=== PATIENT | female | born 1990 | race Caucasian/White ===

== ENCOUNTER 2017-01-17 10:01 | Emergency (ER) ==
[2017-01-17 10:07] VITALS: BP 126/75; TEMP 98.7; BMI 34.9
[2017-01-17] MEDS ORDERED: EYE-STREAM OP STA (10:08)
[2017-01-17] MEDS ORDERED: PROPARACAINE 0.5% OP STA (10:08)
[2017-01-17] MEDS ORDERED: FLUORETS OP STA (10:08)
--- NOTE | 2017-01-17 10:20 | ED.PDOC ---
General ED Provider: Dr. ABDIEL WALSH JR Chief Complaint: Eye Problem Stated Complaint: playing around with boyfriend and thinks his nail scratched right eye[End]last night 98.7 86 18 99% 126/75 1010implant in arm Time Seen by Physician: 10:14 Mode of Arrival: Walk-In Information Source: Patient Exam Limitations: No limitations Nursing and Triage Documentation Reviewed and Agree: No EENT Complaint Exam - Eye Complaint/Exam Onset/Duration: 01/16 Symptoms Are: Still present Timing: Constant Initial Severity: Moderate Current Severity: Moderate Location: Right Character: Reports: Foreign body sensation Aggravating: Reports: None Alleviating: Reports: None Associated Signs and Symptoms: Reports: Clear drainage, Vision impairment ( blurring) Related History: Reports: Similar episode, Trauma Eye Surgical History: Reports: None Penetrating Injury Risk Factors: None Globe Rupture Risk Factors: Recent trauma Acute Glaucoma Risk Factors: Eye trauma Optic Artery Occlusion Risk Factors: None Visual Field: Normal Extraocular Movement: Normal Orbit Findings: Normal Globe Findings: Intact Lid Findings: Normal, Erythema Conjunctival Findings: Red Corneal Findings: Clear Fluorescein Uptake: Yes Fundi: Normal Eye Picture: 1 - superficial triangular abrasion Differential Diagnoses: Corneal Abrasion Review of Systems - Review Of Systems Constitutional: Reports: No symptoms Eyes: Reports: Blurred vision, Drainage, Inflammation, Pain, Photophobia Ears, Nose, Mouth, Throat: Reports: No symptoms Respiratory: Reports: No symptoms Cardiac: Reports: No symptoms GI: Reports: No symptoms : Reports: No symptoms Musculoskeletal: Reports: No symptoms Skin: Reports: No symptoms Endocrine: Reports: No symptoms Hematologic/Lymphatic: Reports: No symptoms All Other Systems: Other Past Medical History - Past Medical History Previously Healthy: Yes Endocrine: Reports: None Cardiovascular: Reports: None Respiratory: Reports: None Hematological: Reports: None Gastrointestinal: Reports: None Genitourinary: Reports: None Neuro/Psych: Reports: None Musculoskeletal: Reports: None Cancer: Reports: None Last Menstrual Period: implant in arm - Surgical History General Surgical History: Reports: None - Family History Family History: Reports: None - Social History Smoking Status: Never smoker Hx Substance Use: No Alcohol Screening: Occasionally - Immunizations Tetanus Shot up to Date: No Physical Exam - Physical Exam Appearance: Well-appearing, Obese Pain Distress: Moderate Eyes: Conjunctiva inflammed (right corneal abrasion) Neck: Supple Neurological: Alert, Oriented (very reticent historian unable to get clear answers but generally negative history) Critical Care Note - Critical Care Note Total Time (mins): 0 Course - Course Orders, Labs, Meds: Orders Category Date Time Status Balanced Salt Solution [Eye-Stream] MEDS 01/17/17 10:08 Discontinued 1 bottle OP ONCE STA Fluorescein Sodium [Fluorets] MEDS 01/17/17 10:08 Discontinued 1 strip OP ONCE STA Proparacaine HCl [Proparacaine 0.5%] MEDS 01/17/17 10:08 Discontinued 2 drop OP ONCE STA Medications Discontinued Medications Generic Name Dose Route Start Last Admin Trade Name Freq PRN Reason Stop Dose Admin Eye Irrigation Solution 1 bottle 01/17/17 10:08 Eye-Stream OP 01/17/17 10:09 ONCE STA Fluorescein Sodium 1 strip 01/17/17 10:08 Fluorets OP 01/17/17 10:09 ONCE STA Proparacaine HCl 2 drop 01/17/17 10:08 Proparacaine 0.5% OP 01/17/17 10:09 ONCE STA Vital Signs: Temp Pulse Resp BP Pulse Ox 01/17/17 10:02 98.7 F 86 18 126/75 99 Departure - Departure Time of Disposition: 10:48 Disposition: HOME SELF-CARE Discharge Problem: Corneal abrasion, right Qualifiers: Encounter type: initial encounter Qualifier Code: (S05.01XA) Injury of conjunctiva and corneal abrasion without foreign body, right eye, initial encounter Instructions: Corneal Abrasion (ED) Condition: Good Pt referred to PMD for follow-up: Yes (recommend see production utility worker in 1-2 days) Additional Instructions: gentamycin three to four time s a day for three days recommend recheck production utility worker 1-2 days return if fever over 101.0 may use eye wash every two hours as needed for discomfort Prescriptions: Gentamicin Sulfate [Gentak Opth Oint] 1 applic OP QID #1 tub Gentamicin Sulfate [Gentak Opth Oint] 1 applic OP QID #1 tub Allergies/Adverse Reactions: Allergies No Known Allergies Allergy (Verified 01/17/17 10:08) Home Medications: Ambulatory Orders Gentamicin Sulfate [Gentak Opth Oint] 1 applic OP QID #1 tub 01/17/17 Gentamicin Sulfate [Gentak Opth Oint] 1 applic OP QID #1 tub 01/17/17
[2017-01-17] MEDS ORDERED: GENTAK OPTH OINT OP STA (10:52)
== END 2017-01-17 11:03 | disposition home or self-care (01) ==
LOC: ED 10:01
DX: S05.01XA Injury of conjunctiva and corneal abrasion without foreign body, right eye, initial encounter (principal); W51.XXXA Accidental striking against or bumped into by another person, initial encounter
CPT/HCPCS: 99282

== ENCOUNTER 2017-02-15 12:44 | Inpatient (IN) ==
[2017-02-15 12:48] VITALS: BMI 33.3
--- NOTE | 2017-02-15 13:03 | ED.PDOC ---
General ED Provider: Dr. TED RAMIREZ Chief Complaint: Sore Throat Stated Complaint: SORE THROAT Time Seen by Physician: 12:44 (SEEN WITH LEANNE AT ARRIVAL AND EXAM) Mode of Arrival: Walk-In Information Source: Patient Exam Limitations: No limitations Nursing and Triage Documentation Reviewed and Agree: Yes Review of Systems - Review Of Systems Constitutional: Reports: No symptoms Eyes: Reports: No symptoms Ears, Nose, Mouth, Throat: Reports: Throat pain Respiratory: Reports: No symptoms Cardiac: Reports: No symptoms GI: Reports: No symptoms : Reports: No symptoms Musculoskeletal: Reports: No symptoms Skin: Reports: No symptoms Neurological: Reports: No symptoms Endocrine: Reports: No symptoms Hematologic/Lymphatic: Reports: No symptoms All Other Systems: Reviewed and Negative Past Medical History - Past Medical History Previously Healthy: Yes Endocrine: Reports: None Cardiovascular: Reports: None Respiratory: Reports: None Hematological: Reports: None Gastrointestinal: Reports: None Genitourinary: Reports: None Neuro/Psych: Reports: None Musculoskeletal: Reports: None Cancer: Reports: None Last Menstrual Period: last month - Surgical History General Surgical History: Reports: None - Family History Family History: Reports: None - Social History Smoking Status: Never smoker Hx Substance Use: No Alcohol Screening: Occasionally Physical Exam - Physical Exam Appearance: Ill-appearing Ill-appearing: Mild Pain Distress: Mild Eyes: ALEE, EOMI, Conjunctiva clear ENT: Erythema, Exudate Respiratory: Airway patent, Breath sounds clear, Breath sounds equal, Respirations nonlabored Cardiovascular: RRR, Pulses normal, No rub, No murmur GI/: Soft, Nontender, No masses, Bowel sounds normal, No Organomegaly Musculoskeletal: Normal strength, ROM intact, No edema, No calf tenderness Skin: Warm, Dry, Normal color Neurological: Sensation intact, Motor intact, Reflexes intact, Cranial nerves intact, Alert, Oriented Psychiatric: Affect appropriate, Mood appropriate Interpretation - Radiology Interpretation Radiology Interpretation By: Radiologist Radiology Results: No acute changes Physician Notification - Case Discussed Physician Notified: JOHN Time of Notification: 15:01 Admit To: Inpatient Critical Care Note - Critical Care Note Total Time (mins): 0 Course - Course Hematology/Chemistry: 02/15/17 13:10 02/15/17 13:10 Orders, Labs, Meds: Orders Category Date Time Status NPO REMINDER: IMAGING ONCE CARE 02/15/17 12:53 Active BLOOD CULTURE Stat LAB 02/15/17 12:53 Ordered CBC W/ AUTO DIFF Stat LAB 02/15/17 12:52 Ordered COMPREHENSIVE METABOLIC PANEL Stat LAB 02/15/17 12:52 Ordered LACTIC ACID Stat LAB 02/15/17 12:53 Ordered PROCALCITONIN Stat LAB 02/15/17 12:53 Ordered STREP SCREEN Stat LAB 02/15/17 13:01 Ordered CHEST, 2 VIEWS PA & LAT Stat RADS 02/15/17 12:[address] SOFT TISSUE NECK W/CONTRAST Stat RADS 02/15/17 12:52 Ordered Vital Signs: Temp Pulse Resp BP Pulse Ox 02/15/17 12:44 102.5 F H 118 H 20 104/70 99 Departure - Departure Time of Disposition: 15:01 Disposition: HOME SELF-CARE Discharge Problem: Sore throat symptom, Acute bacterial tonsillitis Instructions: Hypokalemia (ED) Condition: Good Pt referred to PMD for follow-up: Yes Additional Instructions: Please call your Family Physician as soon as possible to schedule a follow-up appointment. Allergies/Adverse Reactions: Allergies No Known Allergies Allergy (Verified 02/15/17 12:48) Home Medications: Ambulatory Orders 1 [No Reported Medications] 02/15/17 Disposition Discussed With: Patient, Family
[2017-02-15 13:16] LABS: BASOPHILS % (AUTO) 0.3 % (0.0-3.0); HEMATOCRIT 37.4 % (37.0-47.0); HEMOGLOBIN 12.8 g/dl (12.0-16.0); IMMATURE GRANULOCYTE % (AUTO) 0.3 % (0.0-5.0); LYMPHOCYTES # (AUTO) 1.2 K/uL (0.60-3.4); LYMPHOCYTES % (AUTO) 11.6 (10.0-50.0); MEAN CORPUSCULAR HEMOGLOBIN 27.9 pg (27.0-31.0); MEAN CORPUSCULAR HGB CONC 34.2 (31.8-35.4); MEAN CORPUSCULAR VOLUME 81.5 fl (81.0-99.0); NEUTROPHILS # (AUTO) 7.8 K/ul (2.0-6.9); NEUTROPHILS % (AUTO) 77.8; PLATELET COUNT 273 10^3/uL (140-440); RED BLOOD COUNT 4.59 10^6/ul (4.20-5.40); WHITE BLOOD COUNT 10.03 K/ul (4.6-10.2)
[2017-02-15] MEDS ORDERED: TYLENOL #3 TAB PO STA (13:27)
[2017-02-15] MEDS ORDERED: SODIUM CHLORIDE 1,000 ML IV STA (13:27)
[2017-02-15 13:31] LABS: SERUM PREGNANCY INTERNAL QC INTERNAL QC VALID
[2017-02-15 13:35] LABS: ALBUMIN 3.6 g/dL (3.4-5.0); ALBUMIN/GLOBULIN RATIO 0.75; BILIRUBIN,TOTAL 0.58 mg/dL (0.00-1.20); BUN/CREATININE RATIO 16.66; CREATININE 0.84 mg/dL (0.60-1.30); TOTAL PROTEIN 8.4 g/dL (6.4-8.2)
--- NOTE | 2017-02-15 14:17 | DI ---
EXAM: Chest two views HISTORY: Cough COMPARISON: None TECHNIQUE: Two views of the chest were performed FINDINGS: The lungs are clear. There is no pleural effusion or pneumothorax. The heart is normal i n size. The mediastinal contour is normal. There are no acute abnormalities of the bones. IMPRESSION: No acute cardiopulmonary process.
--- NOTE | 2017-02-15 14:33 | CT ---
EXAM: CT soft tissue neck with contrast. HISTORY: Tonsillitis. Possible abscess. COMPARISON: None available. TECHNIQUE: Multiple axial images of the neck were obtained following intravenous administration of 7 5 mL of Omnipaque 350, low osmolar. Images were reformatted in the sagittal and coronal plane. FINDINGS: There is moderate enlargement of the adenoids. The right palatine tonsil is moderately en larged. The left palatine tonsil is mildly enlarged. Parapharyngeal fat planes are maintained. No peritonsillar fluid collections are identified. Multiple lymph nodes present throughout the neck kashif aterally measuring up to 1.6 cm short axis on the right at level to a on axial image 32 of 1.4 [address] axis. The same level on the left on axial image 38. Small amount of fluid noted in the dependent aspect of the hypopharynx. Epiglottis and laryngeal structures do not appear fall. Subglottic airw ay is normal in caliber. The parotid, submandibular and thyroid glands appear unremarkable. Vascular structures in the neck a re patent. Lung apices are clear. No intracranial or intraorbital abnormality identified. Paranasal sinuses and mastoid air cells are clear. No acute osseous abnormality detected. IMPRESSION: 1. Moderate enlargement of the adenoids and right palatine tonsil and mild enlargement of the left p alatine tonsil. No evidence for abscess. 2. Probable reactive cervical lymphadenopathy bilaterally.
[2017-02-15] MEDS ORDERED: ROCEPHIN 1 GM in SODIUM CHLORIDE 50 ML IV STA (15:05)
[2017-02-15] MEDS ORDERED: SOLU-MEDROL 125 MG IVP STA (15:08)
[2017-02-15 15:09] LABS: MONO INTERNAL QC INTERNAL QC VALID
[2017-02-15] MEDS ORDERED: ROCEPHIN ONE (15:11)
[2017-02-15] MEDS: SODIUM CHLORIDE 0.9%-KCL 20 MEQ 1,000 ML IV SCH (16:14)
[2017-02-15] MEDS: SOLU-MEDROL 40 MG IVP SCH (20:10)
[2017-02-16] MEDS: TYLENOL #3 TAB PO PRN ×2 (00:05→20:17)
[2017-02-16] MEDS: SODIUM CHLORIDE 0.9%-KCL 20 MEQ 1,000 ML IV SCH ×2 (04:19→21:46)
[2017-02-16 05:27] LABS: BASOPHILS % (AUTO) 0.1 % (0.0-3.0); HEMATOCRIT 33.6 % (37.0-47.0); HEMOGLOBIN 11.6 g/dl (12.0-16.0); IMMATURE GRANULOCYTE % (AUTO) 0.4 % (0.0-5.0); LYMPHOCYTES # (AUTO) 0.9 K/uL (0.60-3.4); LYMPHOCYTES % (AUTO) 11.8 (10.0-50.0); MEAN CORPUSCULAR HEMOGLOBIN 28.3 pg (27.0-31.0); MEAN CORPUSCULAR HGB CONC 34.5 (31.8-35.4); MONOCYTES # (AUTO) 0.3 K/uL (0.4-2.0); MONOCYTES % (AUTO) 3.7 (0-10); NEUTROPHILS # (AUTO) 6.4 K/ul (2.0-6.9); PLATELET COUNT 275 10^3/uL (140-440); WHITE BLOOD COUNT 7.65 K/ul (4.6-10.2)
[2017-02-16 06:04] LABS: ALBUMIN/GLOBULIN RATIO 0.65; ANION GAP 13.3; BILIRUBIN,TOTAL 0.28 mg/dL (0.00-1.20); BUN/CREATININE RATIO 20.58; CALCIUM 9.4 mg/dL (8.2-10.2); CREATININE 0.68 mg/dL (0.60-1.30); POTASSIUM 3.3 mmol/L (3.5-5.10); TOTAL PROTEIN 7.6 g/dL (6.4-8.2)
[2017-02-16] MEDS ORDERED: K-DUR PO STA (08:23)
[2017-02-16] MEDS: SOLU-MEDROL 40 MG IVP SCH ×2 (08:51→20:17)
[2017-02-16] MEDS: ROCEPHIN 1 GM in SODIUM CHLORIDE 50 ML IV SCH (08:52)
[2017-02-17 05:26] LABS: BASOPHILS % (AUTO) 0.2 % (0.0-3.0); HEMATOCRIT 34.7 % (37.0-47.0); HEMOGLOBIN 11.6 g/dl (12.0-16.0); IMMATURE GRANULOCYTE % (AUTO) 0.6 % (0.0-5.0); LYMPHOCYTES # (AUTO) 1.3 K/uL (0.60-3.4); LYMPHOCYTES % (AUTO) 15.8 (10.0-50.0); MEAN CORPUSCULAR HEMOGLOBIN 27.8 pg (27.0-31.0); MEAN CORPUSCULAR HGB CONC 33.4 (31.8-35.4); MEAN CORPUSCULAR VOLUME 83.2 fl (81.0-99.0); MONOCYTES # (AUTO) 0.5 K/uL (0.4-2.0); MONOCYTES % (AUTO) 6.1 (0-10); NEUTROPHILS # (AUTO) 6.5 K/ul (2.0-6.9); NEUTROPHILS % (AUTO) 77.3; PLATELET COUNT 274 10^3/uL (140-440); RED BLOOD COUNT 4.17 10^6/ul (4.20-5.40); WHITE BLOOD COUNT 8.41 K/ul (4.6-10.2)
[2017-02-17 05:57] LABS: ALBUMIN 2.8 g/dL (3.4-5.0); ALBUMIN/GLOBULIN RATIO 0.64; ANION GAP 12.4; BILIRUBIN,TOTAL 0.25 mg/dL (0.00-1.20); BUN/CREATININE RATIO 24.19; CALCIUM 9.5 mg/dL (8.2-10.2); CREATININE 0.62 mg/dL (0.60-1.30); POTASSIUM 4.4 mmol/L (3.5-5.10); TOTAL PROTEIN 7.2 g/dL (6.4-8.2)
[2017-02-17] MEDS: ROCEPHIN 1 GM in SODIUM CHLORIDE 50 ML IV SCH (08:48)
[2017-02-17] MEDS: SOLU-MEDROL 40 MG IVP SCH ×2 (08:49→20:36)
[2017-02-17] MEDS: TYLENOL #3 TAB PO PRN ×2 (08:58→20:36)
[2017-02-17] MEDS ORDERED: MYLANTA SUSP PO STA (09:27)
[2017-02-17] MEDS: SODIUM CHLORIDE 0.9%-KCL 20 MEQ 1,000 ML IV SCH (10:05)
[2017-02-18] MEDS: SODIUM CHLORIDE 0.9%-KCL 20 MEQ 1,000 ML IV SCH ×2 (00:19→13:37)
[2017-02-18 05:35] LABS: BASOPHILS % (AUTO) 0.2 % (0.0-3.0); HEMATOCRIT 35.1 % (37.0-47.0); IMMATURE GRANULOCYTE % (AUTO) 0.7 % (0.0-5.0); LYMPHOCYTES # (AUTO) 1.4 K/uL (0.60-3.4); LYMPHOCYTES % (AUTO) 15.3 (10.0-50.0); MEAN CORPUSCULAR HEMOGLOBIN 28.2 pg (27.0-31.0); MEAN CORPUSCULAR HGB CONC 34.2 (31.8-35.4); MEAN CORPUSCULAR VOLUME 82.6 fl (81.0-99.0); MONOCYTES # (AUTO) 0.5 K/uL (0.4-2.0); MONOCYTES % (AUTO) 5.9 (0-10); NEUTROPHILS # (AUTO) 7.1 K/ul (2.0-6.9); NEUTROPHILS % (AUTO) 77.9; PLATELET COUNT 333 10^3/uL (140-440); RED BLOOD COUNT 4.25 10^6/ul (4.20-5.40); WHITE BLOOD COUNT 9.04 K/ul (4.6-10.2)
[2017-02-18 05:57] LABS: ALBUMIN 2.9 g/dL (3.4-5.0); ALBUMIN/GLOBULIN RATIO 0.6; ANION GAP 12.2; BILIRUBIN,TOTAL 0.37 mg/dL (0.00-1.20); BUN/CREATININE RATIO 17.39; CALCIUM 9.5 mg/dL (8.2-10.2); CREATININE 0.69 mg/dL (0.60-1.30); POTASSIUM 4.2 mmol/L (3.5-5.10); TOTAL PROTEIN 7.7 g/dL (6.4-8.2)
[2017-02-18] MEDS: ROCEPHIN 1 GM in SODIUM CHLORIDE 50 ML IV SCH (08:36)
[2017-02-18] MEDS: SOLU-MEDROL 40 MG IVP SCH ×2 (08:36→21:04)
[2017-02-18] MEDS: TYLENOL #3 TAB PO PRN ×3 (08:36→21:14)
[2017-02-18] MEDS: NYSTATIN ORAL SUSP PO SCH ×4 (09:51→20:42)
[2017-02-18] MEDS: AMOXIL PO SCH ×3 (09:51→20:42)
[2017-02-18] MEDS: AUGMENTIN 250-62.5/5 SUSP PO SCH ×3 (09:51→20:42)
[2017-02-18] MEDS ORDERED: LIDOCAINE VISCOUS 2% 15 ML UD MUCOUSMEMB ONE (19:26)
[2017-02-19] MEDS: SODIUM CHLORIDE 0.9%-KCL 20 MEQ 1,000 ML IV SCH ×2 (03:46→20:19)
[2017-02-19 05:04] LABS: HEMATOCRIT 36.1 % (37.0-47.0); HEMOGLOBIN 12.2 g/dl (12.0-16.0); MEAN CORPUSCULAR HEMOGLOBIN 27.9 pg (27.0-31.0); MEAN CORPUSCULAR HGB CONC 33.8 (31.8-35.4); MEAN CORPUSCULAR VOLUME 82.4 fl (81.0-99.0); PLATELET COUNT 345 10^3/uL (140-440); RED BLOOD COUNT 4.38 10^6/ul (4.20-5.40); WHITE BLOOD COUNT 9.62 K/ul (4.6-10.2)
[2017-02-19 05:26] LABS: ALBUMIN/GLOBULIN RATIO 0.63; ANION GAP 14.2; BILIRUBIN,TOTAL 0.43 mg/dL (0.00-1.20); BUN/CREATININE RATIO 19.11; CALCIUM 9.5 mg/dL (8.2-10.2); CREATININE 0.68 mg/dL (0.60-1.30); POTASSIUM 4.2 mmol/L (3.5-5.10); TOTAL PROTEIN 7.8 g/dL (6.4-8.2)
[2017-02-19] MEDS: AMOXIL PO SCH ×3 (05:48→20:22)
[2017-02-19] MEDS: AUGMENTIN 250-62.5/5 SUSP PO SCH ×3 (05:48→20:21)
[2017-02-19] MEDS: NYSTATIN ORAL SUSP PO SCH ×4 (05:49→20:23)
[2017-02-19 05:50] LABS: ANISOCYTOSIS NOT PRESENT (NOT PRESENT)
[2017-02-19] MEDS: LIDOCAINE VISCOUS 2% 15 ML UD MUCOUSMEMB PRN ×2 (08:27→13:15)
[2017-02-19] MEDS: SOLU-MEDROL 40 MG IVP SCH ×2 (08:28→20:25)
[2017-02-19] MEDS: ROCEPHIN 1 GM in SODIUM CHLORIDE 50 ML IV SCH (08:28)
[2017-02-19] MEDS: TYLENOL #3 TAB PO PRN (08:31)
--- NOTE | 2017-02-19 08:31 | PN ---
DATE OF SERVICE: 02/16/17 SUBJECTIVE: The patient was admitted with Tonsillitis and tonsillar abscess. The patient is feeling some better and able to swallow some food. Otherwise still hurting in the throat. REVIEW OF SYSTEMS: CONSTITUTIONAL: No fever, no chills. HEENT: Normal. ENDOCRINE: No weight gain, no weight loss. CVS: No angina symptoms. No CHF symptoms. No palpitations. No atypical chest pain for CAD. No shortness of breath. No PND, no orthopnea. RESPIRATORY: No cough, no hemoptysis. GI: No nausea, no vomiting. No abdominal pain. : No hematuria. No polyuria. MUSCULOSKELETAL:. No joint swelling. PSYCHIATRIC: Not anxious. No depression. No suicidal thoughts. No homicidal thoughts. SKIN: Intact. No rash. PHYSICAL EXAMINATION: V/S: Blood pressure 101/68, respiratory rate 18, heart rate 80, temperature 97.7 with saturation 98. HEENT: Normocephalic, atraumatic. Mucosa dry. Throat: right tonsil is swollen, abscess looking tonsil with half of the tonsil having pus pockets in it. Flus are positive. NECK: Supple. No JVD, no carotid bruit. No lymphadenopathy. LUNGS: Clear to auscultation. No rales or rhonchi. HEART: S1, S2 normal. No S3. No murmur, gallop or regurgitation. ABDOMEN: Soft, nontender. Bowel sounds active. No rigidity. No rebound or guarding. No CVA tenderness. EXTREMITIES: No clubbing, cyanosis or pedal edema. MUSCULOSKELETAL: No joint swelling. NEUROLOGIC: Awake, alert, oriented times three. No focal deficit. LYMPHATIC: No lymph nodes palpable. SKIN: Intact. LABS: WBC 7.65, hgb 11.6, hct 33.6, plt count 275, sodium 141, potassium 3.3, chloride 108, bicarb 23, BUN 14, creatinine 0.68, glucose 122. ASSESSMENT: 1. Acute tonsillitis 2. Dysphagia 3. Hypokalemia PLAN: 1. Continue the Rocephin 2. Replace the potassium 3. IV fluids 4. Solu-Medrol 40mg Q 12 hours. TIME SPENT: More than 30 minutes MTDD
--- NOTE | 2017-02-19 08:49 | HP ---
DATE OF SERVICE: 02/15/17 CHIEF COMPLAINT/HISTORY OF PRESENT ILLNESS: Throat pain. She has been hurting in the throat for two weeks, trying to take over the counter medication and not getting help, difficulty swallowing and fever. She came to the emergency room and seen by Dr. Osborn in the emergency room and WBC was normal. Potassium 3.0, serology Ellis is negative. Physical examine she had a temperature of 102.5 and pulse of 118. Right tonsil was swollen and had pus pockets. At that time the patient was admitted to the hospital for the IV antibiotics and treatments. REVIEW OF SYSTEMS: CONSTITUTIONAL: Fever and chills. Difficulty swallowing. No drooling. HEENT: Normal. ENDOCRINE: No weight gain; no weight loss. CVS: No chest pain. No PND, no orthopnea. No shortness of breath. No PND, no orthopnea. RESPIRATORY: No cough, no congestion. No hemoptysis. GI: No nausea, no vomiting. No abdominal pain. No melena. : No hematuria. No polyuria. MUSCULOSKELETAL: No joint swelling. PSYCHIATRIC: Not anxious. No depression. No suicidal thoughts. No homicidal thoughts. SKIN: Intact, no open lesions. PAST MEDICAL HISTORY: Tonsillitis PAST SURGICAL HISTORY: None. PERSONAL HISTORY: The patient does smoke and does drink alcohol sometimes. Family history is significant for heart problems; hypertension. MEDICATIONS: None. ALLERGIES: No known drug allergies. PHYSICAL EXAMINATION: V/S: Blood pressure 104/70, respiratory rate 20, heart rate 118, temperature 102.5 with saturation of 99% HEENT: Atraumatic, normocephalic. No scleral icterus. Throat examination right tonsil has pus pockets very enlarged. They are not touching tonsil. Almost more than 1inch distance between each tonsil. NECK: Supple. No JVD, no bruit. No lymphadenopathy. No thyromegaly. HEART: S1, S2 normal. No murmur. No cyanosis or clubbing. No ascites. LUNGS: Clear to auscultation. No rales or rhonchi. ABDOMEN: Soft, nontender. Bowel sounds are active. No CVA tenderness. No rigidity or guarding. EXTREMITIES: No cyanosis, clubbing or pedal edema. MUSCULOSKELETAL: Normal joints, no swelling. NEUROLOGIC: The patient is SKIN: Intact; no open lesions. LYMPHATIC: No lymph nodes palpable. ASSESSMENT: 1. Acute tonsillitis with pus pockets rule out the influenza PLAN: 1. Iv fluids 2. Rocephin 1 gram daily 3. Solu-Medrol 40mg Q 12 hours 4. Tylenol with Codeine. TIME SPENT: MORE THAN 70 minutes MTDD
[2017-02-19] MEDS: TORADOL IVP PRN ×2 (13:15→20:50)
--- NOTE | 2017-02-19 15:04 | US ---
Exam: Carrillo-scale and color Doppler ultrasonographic evaluation of the right upper extremity venous s tructures. Reason for exam: Redness and swelling. Rule out thrombophlebitis. Comparison: None available. FINDINGS: There is spontaneous flow with adequate compression and respiratory augmentation seen in the right ju gular, subclavian, axillary, brachial, cephalic, basilic, radial, and ulnar veins. Incidental note of a prominent appearing lymph nodes in the right superior neck the largest measuring up to 4.6 cm. The patient reported history of recent strep throat diagnosis. Impression: 1. No evidence of deep venous thrombosis is seen in the right upper extremity. 2. Prominent lymph nodes measuring up to 4.6 cm . 3. Unexpected finding. Prominent appearing lymph nodes in the right superior neck measuring up to 4 .6 cm. Patient reports recent diagnosis of strep throat. Recommend follow up imaging to document re solution.
[2017-02-19] MEDS ORDERED: ZITHROMAX PO ONE (15:30)
[2017-02-20] MEDS: AUGMENTIN 250-62.5/5 SUSP PO SCH ×3 (05:29→20:08)
[2017-02-20] MEDS: AMOXIL PO SCH ×3 (05:29→20:07)
[2017-02-20] MEDS: NYSTATIN ORAL SUSP PO SCH ×4 (05:31→20:08)
[2017-02-20 05:32] LABS: BASOPHILS % (AUTO) 0.4 % (0.0-3.0); EOSINOPHILS % (AUTO) 0.1 % (0.0-7.0); HEMATOCRIT 36.5 % (37.0-47.0); HEMOGLOBIN 12.2 g/dl (12.0-16.0); IMMATURE GRANULOCYTE % (AUTO) 0.8 % (0.0-5.0); LYMPHOCYTES # (AUTO) 1.6 K/uL (0.60-3.4); LYMPHOCYTES % (AUTO) 16.6 (10.0-50.0); MEAN CORPUSCULAR HEMOGLOBIN 27.6 pg (27.0-31.0); MEAN CORPUSCULAR HGB CONC 33.4 (31.8-35.4); MEAN CORPUSCULAR VOLUME 82.6 fl (81.0-99.0); MONOCYTES # (AUTO) 0.6 K/uL (0.4-2.0); MONOCYTES % (AUTO) 6.3 (0-10); NEUTROPHILS # (AUTO) 7.3 K/ul (2.0-6.9); NEUTROPHILS % (AUTO) 75.8; PLATELET COUNT 348 10^3/uL (140-440); RED BLOOD COUNT 4.42 10^6/ul (4.20-5.40); WHITE BLOOD COUNT 9.61 K/ul (4.6-10.2)
[2017-02-20 06:08] LABS: ALBUMIN 2.8 g/dL (3.4-5.0); ALBUMIN/GLOBULIN RATIO 0.61; ANION GAP 14.7; BILIRUBIN,TOTAL 0.37 mg/dL (0.00-1.20); BUN/CREATININE RATIO 24.28; CALCIUM 9.3 mg/dL (8.2-10.2); CREATININE 0.7 mg/dL (0.60-1.30); POTASSIUM 4.7 mmol/L (3.5-5.10); TOTAL PROTEIN 7.4 g/dL (6.4-8.2)
[2017-02-20] MEDS: TORADOL IVP PRN ×2 (09:33→20:11)
[2017-02-20] MEDS: SOLU-MEDROL 40 MG IVP SCH ×2 (10:17→20:09)
[2017-02-20] MEDS: SODIUM CHLORIDE 0.9%-KCL 20 MEQ 1,000 ML IV SCH ×3 (10:18→16:36)
[2017-02-20] MEDS: ROCEPHIN 1 GM in SODIUM CHLORIDE 50 ML IV SCH (10:18)
[2017-02-21] MEDS: TYLENOL #3 TAB PO PRN (01:43)
[2017-02-21] MEDS: SODIUM CHLORIDE 0.9%-KCL 20 MEQ 1,000 ML IV SCH ×2 (01:46→05:30)
[2017-02-21] MEDS: AUGMENTIN 250-62.5/5 SUSP PO SCH ×2 (05:04→12:43)
[2017-02-21] MEDS: TORADOL IVP PRN (05:05)
[2017-02-21] MEDS: AMOXIL PO SCH ×2 (05:05→12:43)
[2017-02-21] MEDS: NYSTATIN ORAL SUSP PO SCH ×2 (05:30→11:30)
[2017-02-21 05:35] LABS: BASOPHILS % (AUTO) 0.2 % (0.0-3.0); HEMATOCRIT 36.5 % (37.0-47.0); HEMOGLOBIN 12.2 g/dl (12.0-16.0); IMMATURE GRANULOCYTE % (AUTO) 1.1 % (0.0-5.0); LYMPHOCYTES # (AUTO) 2.2 K/uL (0.60-3.4); LYMPHOCYTES % (AUTO) 19.1 (10.0-50.0); MEAN CORPUSCULAR HEMOGLOBIN 27.6 pg (27.0-31.0); MEAN CORPUSCULAR HGB CONC 33.4 (31.8-35.4); MEAN CORPUSCULAR VOLUME 82.6 fl (81.0-99.0); MONOCYTES # (AUTO) 0.8 K/uL (0.4-2.0); MONOCYTES % (AUTO) 6.8 (0-10); NEUTROPHILS # (AUTO) 8.2 K/ul (2.0-6.9); NEUTROPHILS % (AUTO) 72.8; PLATELET COUNT 357 10^3/uL (140-440); RED BLOOD COUNT 4.42 10^6/ul (4.20-5.40); WHITE BLOOD COUNT 11.32 K/ul (4.6-10.2)
[2017-02-21 05:53] LABS: ALBUMIN 2.8 g/dL (3.4-5.0); ALBUMIN/GLOBULIN RATIO 0.6; ANION GAP 12.4; BILIRUBIN,TOTAL 0.36 mg/dL (0.00-1.20); BUN/CREATININE RATIO 22.38; CALCIUM 9.5 mg/dL (8.2-10.2); CREATININE 0.67 mg/dL (0.60-1.30); POTASSIUM 4.4 mmol/L (3.5-5.10); TOTAL PROTEIN 7.5 g/dL (6.4-8.2)
[2017-02-21 05:55] VITALS: BP 93/58; TEMP 98.2
[2017-02-21] MEDS: SOLU-MEDROL 40 MG IVP SCH (08:56)
[2017-02-21] MEDS: ROCEPHIN 1 GM in SODIUM CHLORIDE 50 ML IV SCH (08:56)
--- NOTE | 2017-02-21 10:03 | CT ---
EXAM: CT scan of the neck soft tissues without contrast HISTORY: Dysphagia, tonsillitis TECHNIQUE: Imaging of the neck soft tissues was performed without contrast. 3 mm thin axial images and coronal and sagittal reconstructions were provided for interpretation. Comparison 02/15/2017. FINDINGS: There is persistent enlargement of the palatine tonsils bilaterally. There is enlargement of the adenoids. No definite fluid collections are seen. The floor the mouth appears normal. No ac daquan abnormalities are seen within the epiglottis and piriform sinuses. Mildly enlarged lymph nodes a re seen within the soft tissues of the neck bilaterally. The largest lymph node is a identified on t he right measuring up to 2.7 cm along the long axis and 1.6 cm along the short axis, seen on axial im age number 33.. The upper lungs are clear. IMPRESSION: Limited evaluation without intravenous contrast. Within these limitations, there is persistent and stable enlargement of the palatine tonsils bilatera lly, right greater than left, and the findings may represent an inflammatory/infectious process. No obvious fluid collections are seen. Enlarged lymph nodes are again seen within the soft tissues of the neck bilaterally. Continued follow -up evaluation should be performed to check for resolution. Findings may represent reactive lymphaden opathy. Lymphoma versus metastatic lymphadenopathy cannot be excluded.
--- NOTE | 2017-02-25 12:56 | PN ---
DATE OF SERVICE: 02/17/17 SUBJECTIVE: The patient was admitted with acute tonsillitis and dysphagia. Getting IV Rocephin and still complains that she is hurting and having trouble swallowing. REVIEW OF SYSTEMS: CONSTITUTIONAL: No fever, no chills. HEENT: Normal. ENDOCRINE: No weight gain, no weight loss. CVS: No angina symptoms. No CHF symptoms. No palpitations. No atypical chest pain for CAD. No shortness of breath. No PND, no orthopnea. RESPIRATORY: No cough, no hemoptysis. GI: No nausea, no vomiting. No abdominal pain. : No hematuria. No polyuria. MUSCULOSKELETAL:. No joint swelling. PSYCHIATRIC: Not anxious. No depression. No suicidal thoughts. No homicidal thoughts. SKIN: Intact. No rash. PHYSICAL EXAMINATION: V/S: Blood pressure 88/49, respiratory rate 16, heart rate 94, temperature 97.1. HEENT: Normocephalic, atraumatic. Both tonsils have yellowish spots and above the tonsil has a moth eaten appearance. NECK: Supple. No JVD, no carotid bruit. No lymphadenopathy. LUNGS: Clear to auscultation. No rales or rhonchi. HEART: S1, S2 normal. No S3. No murmur, gallop or regurgitation. ABDOMEN: Soft, nontender. Bowel sounds active. No rigidity. No rebound or guarding. No CVA tenderness. EXTREMITIES: No clubbing, cyanosis or pedal edema. MUSCULOSKELETAL: No joint swelling. NEUROLOGIC: Awake, alert, oriented times three. No focal deficit. LYMPHATIC: No lymph nodes palpable. SKIN: Intact. LABS: WBC 8.41, hgb 11.6, hct 34.7, plt count 274, sodium 140, potassium 4.4, chloride 108, Bicarb 24, BUN 15, creatinine 0.62. ASSESSMENT: 1. Acute tonsillitis with dysphagia PLAN: 1. Continue Rocephin 2. Out of bed to chair activity as tolerated 3. Lidocaine swish and swallow PRN 4. Solu-Medrol 40mg Q 12 hours TIME SPENT: More than 35 minutes MTDD
--- NOTE | 2017-02-25 13:03 | PN ---
DATE OF SERVICE: 02/18/17 SUBJECTIVE: The patient was admitted with acute tonsillitis and dysphagia. Still having trouble swallowing. REVIEW OF SYSTEMS: CONSTITUTIONAL: No fever, no chills. HEENT: Normal. ENDOCRINE: No weight gain, no weight loss. CVS: No angina symptoms. No CHF symptoms. No palpitations. No atypical chest pain for CAD. No shortness of breath. No PND, no orthopnea. RESPIRATORY: No cough, no hemoptysis. GI: No nausea, no vomiting. No abdominal pain. : No hematuria. No polyuria. MUSCULOSKELETAL:. No joint swelling. PSYCHIATRIC: Not anxious. No depression. No suicidal thoughts. No homicidal thoughts. SKIN: Intact. No rash. PHYSICAL EXAMINATION: V/S: Blood pressure 104/65, respiratory rate 16, heart rate 94, temperature 99.1. HEENT: Normocephalic, atraumatic. Still has both tonsils have yellow patches, swallow and congested tonsil. Tonsils are not touching each other. Cervical lymphadenopathy present. NECK: Supple. No JVD, no carotid bruit. No lymphadenopathy. LUNGS: Clear to auscultation. No rales or rhonchi. HEART: S1, S2 normal. No S3. No murmur, gallop or regurgitation. ABDOMEN: Soft, nontender. Bowel sounds active. No rigidity. No rebound or guarding. No CVA tenderness. EXTREMITIES: No clubbing, cyanosis or pedal edema. MUSCULOSKELETAL: No joint swelling. NEUROLOGIC: Awake, alert, oriented times three. No focal deficit. LYMPHATIC: No lymph nodes palpable. SKIN: Intact. LABS: Sodium 138, potassium 4.2, chloride 104, bicarb 26, BUN 12, creatinine 0.69, WBC 9.04, hgb 12.0, hct 35.1, plt count 333. ASSESSMENT: 1. Acute tonsillitis, still tonsils has a lot of puss packets PLAN: 1. Continue the Rocephin 2. Will order the Amoxicillin 500mg 3. Give Lidocaine swish and swallow 4. Nystatin swish and swallow 5. IV fluids 6. Out of bed to chair activity as tolerated 7. Daily I&O's TIME SPENT: More than 35 minutes MTDD
--- NOTE | 2017-02-25 13:09 | PN ---
DATE OF SERVICE: 02/19/17 SUBJECTIVE: The patient was admitted with acute bilateral tonsillitis, not touching each other. On further questioning of the patient, the patient did complain that the patient had a new partner recently and was having some oral sex and there is a question of having STD also. The patient was evaluated for the STD. Today the serology came positive for the Flu A and B. REVIEW OF SYSTEMS: CONSTITUTIONAL: No fever, no chills. HEENT: Normal. ENDOCRINE: No weight gain, no weight loss. CVS: No angina symptoms. No CHF symptoms. No palpitations. No atypical chest pain for CAD. No shortness of breath. No PND, no orthopnea. RESPIRATORY: No cough, no hemoptysis. GI: No nausea, no vomiting. No abdominal pain. : No hematuria. No polyuria. MUSCULOSKELETAL:. No joint swelling. PSYCHIATRIC: Not anxious. No depression. No suicidal thoughts. No homicidal thoughts. SKIN: Intact. No rash. PHYSICAL EXAMINATION: V/S: Blood pressure 100/58, respiratory rate 20, heart rate 96, temperature 99.9. HEENT: Normocephalic, atraumatic. Tonsil are swollen, red with puss pockets in it. Cervical lymphadenopathy present. NECK: Supple. No JVD, no carotid bruit. No lymphadenopathy. LUNGS: Clear to auscultation. No rales or rhonchi. HEART: S1, S2 normal. No S3. No murmur, gallop or regurgitation. ABDOMEN: Soft, nontender. Bowel sounds active. No rigidity. No rebound or guarding. No CVA tenderness. EXTREMITIES: No clubbing, cyanosis or pedal edema. MUSCULOSKELETAL: No joint swelling. NEUROLOGIC: Awake, alert, oriented times three. No focal deficit. LYMPHATIC: No lymph nodes palpable. SKIN: Intact. LABS: Sodium 136, potassium 4.2, chloride 100, bicarb 26, BUN 13, creatinine 0.68, WBC 9.62, hgb 12.2, hct 36.1, plt count 345. ASSESSMENT: 1. Bilateral acute tonsillitis with resistant to most of the antibiotics so far. Being evaluated for STD. 2. Flu A and B are positive. PLAN: 1. Will give Toradol for the pain 2. Continue the Rocephin and the Amoxicillin 3. Lidocaine swish and swallow 4. Nystatin swish and swallow 5. Out of bed to chair activity as tolerated TIME SPENT: More than 30 minutes MTDD
--- NOTE | 2017-02-25 13:28 | PN ---
DATE OF SERVICE: 02/20/17 SUBJECTIVE: The patient says that she is feeling some better. Less pain in the swallow. Tonsil size is better today and the puss pockets are still present. REVIEW OF SYSTEMS: CONSTITUTIONAL: No fever, no chills. HEENT: Normal. ENDOCRINE: No weight gain, no weight loss. CVS: No angina symptoms. No CHF symptoms. No palpitations. No atypical chest pain for CAD. No shortness of breath. No PND, no orthopnea. RESPIRATORY: No cough, no hemoptysis. GI: No nausea, no vomiting. No abdominal pain. : No hematuria. No polyuria. MUSCULOSKELETAL:. No joint swelling. PSYCHIATRIC: Not anxious. No depression. No suicidal thoughts. No homicidal thoughts. SKIN: Intact. No rash. PHYSICAL EXAMINATION: V/S: Blood pressure 89/57, respiratory rate 16, heart rate 70, temperature 97.9 with saturation 98%. HEENT: Normocephalic, atraumatic. Tonsils are not touching. Swelling and the redness is decrease. Cervical lymphadenopathy is better. NECK: Supple. No JVD, no carotid bruit. No lymphadenopathy. LUNGS: Clear to auscultation. No rales or rhonchi. HEART: S1, S2 normal. No S3. No murmur, gallop or regurgitation. ABDOMEN: Soft, nontender. Bowel sounds active. No rigidity. No rebound or guarding. No CVA tenderness. EXTREMITIES: No clubbing, cyanosis or pedal edema. MUSCULOSKELETAL: No joint swelling. NEUROLOGIC: Awake, alert, oriented times three. No focal deficit. LYMPHATIC: No lymph nodes palpable. SKIN: Intact. LABS: WBC 9.61, hgb 12.2, hct 36.5, plt count 348, sodium 137, potassium 4.7, chloride 103, bicarb 24, BUN 17, creatinine 0.70 and glucose 114. ASSESSMENT: 1. Bilateral acute tonsillitis, no peritonsillar abscess per CAT scan 2. Flu A and B positive PLAN: 1. Continue the Toradol and Rocephin and Amoxicillin 2. Nystatin swish and swallow 3. Out of bed to chair activity as tolerated TIME SPENT: More than 35 minutes MTDD
--- NOTE | 2017-03-19 15:46 | DS ---
DATE OF SERVICE: 02/21/17 FINAL DIAGNOSIS: 1. Acute bilateral tonsillitis with no peritonsillar abscess. 2. Flu A and B positive 3. 1 Para 1 DISCHARGE INSTRUCTIONS: Discharge the patient home. Continue all the home medication. Probiotics and yogurt. MEDICATIONS AT DISCHARGE/ NEW PRESCRIPTION: Nystatin 5ml swish and swallow before each meal and bedtime Augmentin 250mg take 10ml three times a day for 7 days. DIET INSTRUCTIONS: Drink plenty of water. ACTIVITY: Can participate in the regular activities. SMOKING: Never smoker DISEASE SPECIFIC EDUCATION: Tonsillitis, complicated with puss pockets and need for the tonsillectomy been discussed and verbalized understanding. HOSPITAL COURSE: Dinora Nova who is a 26 year old female came to the emergency room with difficulty swallowing, fever and swallow neck glads and swallow tonsils with puss pockets and potassium was 3.0. The patient was admitted to the hospital and started on the Rocephin. IV fluids and Rocephin and the breathing treatments. The patient was evaluated for the Flu. Flu A and B came positive. The patient's tonsils were swollen so big that they was very narrow opening in the airway. That was a major reason for the admission on the patient. Impending respiratory failure but with the Lidocaine swish and swallow and Rocephin everyday that patient was gradually getting better. Half of the tonsils were eaten by the tonsillitis and puss pockets can be seen evident. Mononucleosis was negative. CT thoracic did not show any abscess. Potassium was replacement. Hospital stay was lengthy secondary to the very bad tonsillitis and almost touching each other but gradually the patient got better. Dr. Aggarwal was called on the consultation just to help us with make sure we are on the path with patient's treatment. Dr. Aggarwal did not add any medication and he agrees with the plan. Meanwhile the patient was up and about walking and did not have any complications. At that time the patient being discharged home and will be evaluated by the ENT surgeon for the possible surgery. TIME SPENT: MORE THAN 55-60 MINUTES MTDD
[2017-03-20 13:09] LABS: FUNGAL CULTURE Final report (.)
== END 2017-02-21 13:00 | disposition home or self-care (01) | DRG 153 ==
LOC: ED 12:44 → MEDSURG B 15:15
PROVIDERS: ADMIT Emergency Medicine; ATTEND Emergency Medicine
DX: J11.1 Influenza due to unidentified influenza virus with other respiratory manifestations (principal); R50.9 Fever, unspecified; E87.6 Hypokalemia; F17.200 Nicotine dependence, unspecified, uncomplicated; Z72.51 High risk heterosexual behavior
CPT/HCPCS: 36415; 80053; 83605; 84145; 84703; 85007; 85025; 86308; 86710; 87040; 87101; 87252; 87651; 87800; 87880; 96361; 96365; 96375; 99284

== ENCOUNTER 2017-11-18 18:11 | Emergency (ER) ==
[2017-11-18 18:16] VITALS: BP 119/75; TEMP 98.7; BMI 36.1
--- NOTE | 2017-11-18 18:34 | ED.PDOC ---
General ED Provider: Dr. ARELI RANGEL-ER Chief Complaint: Tooth Problem Stated Complaint: my tooth is broken off Time Seen by Physician: 18:32 Mode of Arrival: Walk-In Information Source: Patient Exam Limitations: No limitations Nursing and Triage Documentation Reviewed and Agree: Yes Does patient meet sepsis criteria?: No System Inflammatory Response Syndrome: Not Applicable Sepsis Protocol: For patient's 13 years and over: Temp is 96.8 and below OR 101 and greater Pulse >90 BPM Resp >20/minute Acutely Altered Mental Status Are patient's symptoms suggestive of a new infection, such as: -Pneumonia -Skin, Soft Tissue -Endocarditis -UTI -Bone, Joint Infection -Implantable Device -Acute Abdominal Infection -Wound Infection -Meningitis -Blood Stream Catheter Infection -Unknown EENT Complaint Exam - Dental/Oral Complaint/Exam Mechanism of Injury: No known trauma Onset/Duration: 2 dys Symptoms Are: Still present Timing: Constant Initial Severity: Mild Current Severity: Mild Location: upper incisor left Character: Reports: Dull Aggravating: Reports: Heat Associated Signs and Symptoms: Reports: Swelling Related History: Reports: Previous tooth problem Facial Swelling Present: No Bleeding Present: No Septal Hematoma: No Foreign Body Present: No Dysphagia Present: No Drooling Present: No Asymmetrical Tonsillar Swelling Present: No Uvula Midline: Yes Safia-tonsillar Fluctuence: No Trismus Present: No Palatal Petechiae Present: No Scarlatinaform Rash Present: No Review of Systems - Review Of Systems Constitutional: Reports: No symptoms Eyes: Reports: No symptoms Ears, Nose, Mouth, Throat: Reports: Mouth pain, Mouth swelling Respiratory: Reports: No symptoms Cardiac: Reports: No symptoms GI: Reports: No symptoms : Reports: Hematuria Musculoskeletal: Reports: No symptoms Skin: Reports: No symptoms Neurological: Reports: No symptoms Endocrine: Reports: No symptoms Hematologic/Lymphatic: Reports: No symptoms All Other Systems: Reviewed and Negative Past Medical History - Past Medical History Previously Healthy: Yes Endocrine: Reports: None Cardiovascular: Reports: None Respiratory: Reports: None Hematological: Reports: None Gastrointestinal: Reports: None Genitourinary: Reports: None Neuro/Psych: Reports: None Musculoskeletal: Reports: None Cancer: Reports: None Last Menstrual Period: last month - Surgical History General Surgical History: Reports: None - Family History Family History: Reports: None - Social History Smoking Status: Never smoker Hx Substance Use: No Alcohol Screening: Occasionally Physical Exam - Physical Exam Appearance: Well-appearing, No pain distress, Well-nourished Pain Distress: Mild Eyes: ALEE, EOMI, Conjunctiva clear ENT: Ears normal, Nose normal Neck: Supple Respiratory: Airway patent Cardiovascular: RRR, Pulses normal, No rub, No murmur GI/: Soft, Nontender, No masses, Bowel sounds normal, No Organomegaly Musculoskeletal: Normal strength, ROM intact, No edema, No calf tenderness Skin: Warm, Dry, Normal color Neurological: Sensation intact, Motor intact, Reflexes intact, Cranial nerves intact, Alert, Oriented Psychiatric: Affect appropriate Critical Care Note - Critical Care Note Total Time (mins): 0 Course - Course Vital Signs: Temp Pulse Resp BP Pulse Ox 11/18/17 18:12 98.7 F 73 16 119/75 99 Departure - Departure Time of Disposition: 18:34 Disposition: HOME SELF-CARE Discharge Problem: Toothache Instructions: Dental Abscess (ED) Condition: Good Pt referred to PMD for follow-up: Yes IPMP verified?: No Additional Instructions: augmentin 875mg bid s 7 days plus norco 5mg q 4hrs prn pain #!0--see dentist mable Allergies/Adverse Reactions: Allergies No Known Allergies Allergy (Verified 11/18/17 18:16) Home Medications: Ambulatory Orders Etonogestrel [Nexplanon] 68 mg SQ d 03/17/17 Disposition Discussed With: Patient, Family
== END 2017-11-18 18:35 | disposition home or self-care (01) ==
LOC: ED 18:11
DX: K08.89 Other specified disorders of teeth and supporting structures (principal); S02.5XXA Fracture of tooth (traumatic), initial encounter for closed fracture
CPT/HCPCS: 99282

== ENCOUNTER 2017-12-23 18:25 | Emergency (ER) ==
[2017-12-23 18:30] VITALS: BP 102/68; TEMP 99; BMI 35.4
--- NOTE | 2017-12-23 18:51 | ED.PDOC ---
General ED Provider: Dr. TED RAMIREZ Chief Complaint: Tooth Problem Stated Complaint: DENTAL PAIN Time Seen by Physician: 18:49 (SEEN julisa RN ) Mode of Arrival: Walk-In Information Source: Patient Exam Limitations: No limitations Nursing and Triage Documentation Reviewed and Agree: Yes Does patient meet sepsis criteria?: No System Inflammatory Response Syndrome: Not Applicable (CHRONIC DENTAL PAIN) Sepsis Protocol: For patient's 13 years and over: Temp is 96.8 and below OR 101 and greater Pulse >90 BPM Resp >20/minute Acutely Altered Mental Status Are patient's symptoms suggestive of a new infection, such as: -Pneumonia -Skin, Soft Tissue -Endocarditis -UTI -Bone, Joint Infection -Implantable Device -Acute Abdominal Infection -Wound Infection -Meningitis -Blood Stream Catheter Infection -Unknown EENT Complaint Exam - Dental/Oral Complaint/Exam Mechanism of Injury: No known trauma Onset/Duration: CHRONIC Symptoms Are: Still present Timing: Intermittent Initial Severity: Moderate Current Severity: Moderate Character: Reports: Aching, Throbbing Aggravating: Reports: Heat, Cold, Chewing Alleviating: Reports: None Associated Signs and Symptoms: Denies: Swelling, Discharge, Fever, Foul odor, Foul taste in mouth Related History: Reports: Similar episode Cardiac Risk Factors: Reports: None Dental/Oral Surgical History: Reports: None Tooth Findings: Present: Gross decay, Gross caries, Dental fracture Cervical Lymphadenopathy Present: No Facial Swelling Present: No Bleeding Present: No Oropharynx Findings: Absent: Clots, Active bleeding Septal Hematoma: No Foreign Body Present: No Dysphagia Present: No Drooling Present: No Asymmetrical Tonsillar Swelling Present: No Uvula Midline: Yes Safia-tonsillar Fluctuence: No Trismus Present: No Palatal Petechiae Present: No Scarlatinaform Rash Present: No Lesions: Absent: Lip, Gums, Tongue, Buccal Mucosa, Pharynx Exanthem: Absent: Lip, Gums, Tongue, Buccal Mucosa, Pharynx Teeth Picture: 1 - DECAY WIDESPREAD Differential Diagnoses: Dental Caries, Fractured Tooth Review of Systems - Review Of Systems Constitutional: Reports: No symptoms Eyes: Reports: No symptoms Ears, Nose, Mouth, Throat: Reports: Mouth pain Respiratory: Reports: No symptoms Cardiac: Reports: No symptoms GI: Reports: No symptoms : Reports: No symptoms Musculoskeletal: Reports: No symptoms Skin: Reports: No symptoms Neurological: Reports: No symptoms Endocrine: Reports: No symptoms Hematologic/Lymphatic: Reports: No symptoms All Other Systems: Reviewed and Negative Past Medical History - Past Medical History Previously Healthy: Yes Endocrine: Reports: None Cardiovascular: Reports: None Respiratory: Reports: None Hematological: Reports: None Gastrointestinal: Reports: None Genitourinary: Reports: None Neuro/Psych: Reports: None Musculoskeletal: Reports: None Cancer: Reports: None Last Menstrual Period: 12/05/17 - Surgical History General Surgical History: Reports: None - Family History Family History: Reports: None - Social History Smoking Status: Never smoker Hx Substance Use: No Alcohol Screening: Occasionally - Immunizations Tetanus Shot up to Date: No Physical Exam - Physical Exam Appearance: Well-appearing, No pain distress, Well-nourished Eyes: ALEE, EOMI, Conjunctiva clear ENT: Ears normal, Nose normal, Oropharynx normal Respiratory: Airway patent, Breath sounds clear, Breath sounds equal, Respirations nonlabored Cardiovascular: RRR, Pulses normal, No rub, No murmur GI/: Soft, Nontender, No masses, Bowel sounds normal, No Organomegaly Musculoskeletal: Normal strength, ROM intact, No edema, No calf tenderness Skin: Warm, Dry, Normal color Neurological: Sensation intact, Motor intact, Reflexes intact, Cranial nerves intact, Alert, Oriented Psychiatric: Affect appropriate, Mood appropriate Critical Care Note - Critical Care Note Total Time (mins): 0 Course - Course Vital Signs: Temp Pulse Resp BP Pulse Ox 12/23/17 18:26 99.0 F 107 H 16 102/68 98 Departure - Departure Time of Disposition: 18:51 Disposition: HOME SELF-CARE Discharge Problem: Toothache Instructions: Toothache (ED) Condition: Good Pt referred to PMD for follow-up: Yes IPMP verified?: No Additional Instructions: Please call your Family Physician as soon as possible to schedule a follow-up appointment. Allergies/Adverse Reactions: Allergies No Known Allergies Allergy (Verified 12/23/17 18:30) Home Medications: Ambulatory Orders Etonogestrel [Nexplanon] 68 mg SQ d 03/17/17 Amoxicillin 500 mg PO Q8HR #21 tablet 12/23/17 Hydrocodone/Acetaminophen [[place] 10-325 Tablet] 1 each PO Q8HR #14 tablet
== END 2017-12-23 19:00 | disposition home or self-care (01) ==
LOC: ED 18:25
DX: K08.89 Other specified disorders of teeth and supporting structures (principal); S02.5XXA Fracture of tooth (traumatic), initial encounter for closed fracture; K02.9 Dental caries, unspecified
CPT/HCPCS: 99282

== ENCOUNTER 2017-12-26 16:15 | Emergency (ER) ==
[2017-12-26 16:20] VITALS: BP 137/79; TEMP 98.3; BMI 35.0
--- NOTE | 2017-12-26 17:55 | ED.PDOC ---
General ED Provider: Dr. ARELI FERNÁNDEZ Chief Complaint: Tooth Problem Stated Complaint: Tooth ache, gums aching and sensation of bumps on gumline. Taking antibiotics and anlagesics without much benefit. Attempting to find dentist Time Seen by Physician: 17:35 Mode of Arrival: Walk-In Information Source: Patient Exam Limitations: No limitations Seen Within Last 72 Hours for Same Complaint By: ED Nursing and Triage Documentation Reviewed and Agree: Yes Does patient meet sepsis criteria?: No System Inflammatory Response Syndrome: Not Applicable Sepsis Protocol: For patient's 13 years and over: Temp is 96.8 and below OR 101 and greater Pulse >90 BPM Resp >20/minute Acutely Altered Mental Status Are patient's symptoms suggestive of a new infection, such as: -Pneumonia -Skin, Soft Tissue -Endocarditis -UTI -Bone, Joint Infection -Implantable Device -Acute Abdominal Infection -Wound Infection -Meningitis -Blood Stream Catheter Infection -Unknown EENT Complaint Exam - Dental/Oral Complaint/Exam Mechanism of Injury: No known trauma Onset/Duration: 1 week Symptoms Are: Still present Timing: Constant Initial Severity: Moderate Current Severity: Moderate Location: Rt upper gingival region Character: Reports: Aching, Throbbing Aggravating: Reports: Cold, Chewing Alleviating: Reports: OTC Meds Associated Signs and Symptoms: Reports: Swelling Related History: Denies: Similar episode Cardiac Risk Factors: Reports: None Dental/Oral Surgical History: Reports: None Tooth Findings: Present: Percussion tenderness, Dental fracture Cervical Lymphadenopathy Present: Yes Facial Swelling Present: No Bleeding Present: No Oropharynx Findings: Absent: Clots, Active bleeding Dysphagia Present: No Drooling Present: No Differential Diagnoses: Dental Abcess, Dental Caries, Gingivitis Review of Systems - Review Of Systems Constitutional: Reports: No symptoms Eyes: Reports: No symptoms Ears, Nose, Mouth, Throat: Reports: No symptoms, Mouth pain, Mouth swelling Respiratory: Reports: No symptoms Cardiac: Reports: No symptoms GI: Reports: No symptoms : Reports: No symptoms Musculoskeletal: Reports: No symptoms Skin: Reports: No symptoms Neurological: Reports: No symptoms Endocrine: Reports: No symptoms Hematologic/Lymphatic: Reports: No symptoms All Other Systems: Reviewed and Negative Past Medical History - Past Medical History Previously Healthy: Yes Endocrine: Reports: None Cardiovascular: Reports: None Respiratory: Reports: None Hematological: Reports: None Gastrointestinal: Reports: None Genitourinary: Reports: None Neuro/Psych: Reports: None Musculoskeletal: Reports: None Cancer: Reports: None Last Menstrual Period: last week - Surgical History General Surgical History: Reports: None - Family History Family History: Reports: None - Social History Smoking Status: Never smoker Hx Substance Use: No Alcohol Screening: Occasionally Physical Exam - Physical Exam Appearance: Well-appearing, No pain distress, Well-nourished Eyes: ALEE, EOMI, Conjunctiva clear ENT: Ears normal, Nose normal, Oropharynx normal, Rhinorrhea, Erythema Respiratory: Airway patent, Breath sounds clear, Breath sounds equal, Respirations nonlabored Cardiovascular: RRR, Pulses normal, No rub, No murmur GI/: Soft, Nontender, No masses, Bowel sounds normal, No Organomegaly Musculoskeletal: Normal strength, ROM intact, No edema, No calf tenderness Skin: Warm, Dry, Normal color Neurological: Sensation intact, Motor intact, Reflexes intact, Cranial nerves intact, Alert, Oriented Psychiatric: Affect appropriate, Mood appropriate Critical Care Note - Critical Care Note Total Time (mins): 0 Course - Course Vital Signs: Temp Pulse Resp BP Pulse Ox 12/26/17 16:15 98.3 F 76 20 137/79 98 Departure - Departure Time of Disposition: 17:50 Disposition: HOME SELF-CARE Discharge Problem: Pain, dental, Dental abscess, Caries involving multiple surfaces of tooth Instructions: Dental Abscess (ED), Toothache (ED), Dry Mouth (ED) Condition: Fair Pt referred to PMD for follow-up: Yes (see PCP this week and find a dentist) IPMP verified?: No Additional Instructions: Rinse mouth with warm salt water Take meds Prescriptions: Clindamycin HCl 300 mg PO Q6HR 7 Days #28 capsule Ibuprofen 600 mg PO QID #20 tablet Allergies/Adverse Reactions: Allergies No Known Allergies Allergy (Verified 12/26/17 16:20) Home Medications: Ambulatory Orders Etonogestrel [Nexplanon] 68 mg SQ d 03/17/17 Amoxicillin 500 mg PO Q8HR #21 tablet 12/23/17 Hydrocodone/Acetaminophen [[place] 10-325 Tablet] 1 each PO Q8HR #14 tablet Clindamycin HCl 300 mg PO Q6HR 7 Days #28 capsule 12/26/17 Ibuprofen 600 mg PO QID #20 tablet 12/26/17 Disposition Discussed With: Patient, Family
== END 2017-12-26 18:19 | disposition home or self-care (01) ==
LOC: ED 16:15
DX: K04.7 Periapical abscess without sinus (principal); K02.7 Dental root caries; K08.89 Other specified disorders of teeth and supporting structures
CPT/HCPCS: 99282

== ENCOUNTER 2018-02-12 23:08 | Emergency (ER) ==
[2018-02-12 23:17] VITALS: BP 109/74; TEMP 100; BMI 35.0
--- NOTE | 2018-02-12 23:31 | ED.PDOC ---
General ED Provider: Dr. MARY RAMIREZ Chief Complaint: Sore Throat Stated Complaint: My throat hurts off and on for 1 day and feeling of tongue swelling. But no difficulty swallowing or speaking. Time Seen by Physician: 23:25 Mode of Arrival: Walk-In Information Source: Patient Exam Limitations: No limitations Nursing and Triage Documentation Reviewed and Agree: Yes Does patient meet sepsis criteria?: No System Inflammatory Response Syndrome: Not Applicable Sepsis Protocol: For patient's 13 years and over: Temp is 96.8 and below OR 101 and greater Pulse >90 BPM Resp >20/minute Acutely Altered Mental Status Are patient's symptoms suggestive of a new infection, such as: -Pneumonia -Skin, Soft Tissue -Endocarditis -UTI -Bone, Joint Infection -Implantable Device -Acute Abdominal Infection -Wound Infection -Meningitis -Blood Stream Catheter Infection -Unknown EENT Complaint Exam - Throat Complaint/Exam Onset/Duration: 1 day Symptoms Are: Still present Timimg: Constant Initial Severity: Mild Current Severity: Mild Associated Signs and Symptoms: Denies: Fever, Dysphagia, Drooling, Foreign body sensation, Chills, Cough, Wheezing, Hoarseness, Sinus discomfort, Nasal congestion, Difficulty breathing, Lethargy, Irritability, Decreased activity, Vomiting, Diarrhea, Decreased hearing, Ear drainage Related History: Reports: Similar Episode Uvula Midline: Yes Safia-tonsillar Fluctuence: No Scarlatinaform Rash Present: No Lesions: Absent: Lip, Gums, Tongue, Buccal Mucosa, Pharynx Exanthem: Absent: Lip, Gums, Tongue, Buccal Mucosa, Pharynx Vesicles: Absent: Lip, Gums, Tongue, Buccal Mucosa, Pharynx Stridor Present: No Sinus Tenderness Present: No Tonsillar Hypertrophy Present: No Tonsillar Exudate Present: No Safia-tonsillar Swelling Present: No Adenopathy Present: No Splenomegaly Present: No Differential Diagnoses: Mononucleosis, Pharyngitis Review of Systems - Review Of Systems Constitutional: Reports: No symptoms Eyes: Reports: No symptoms Ears, Nose, Mouth, Throat: Reports: Mouth pain, Throat pain Respiratory: Reports: No symptoms Cardiac: Reports: No symptoms GI: Reports: No symptoms : Reports: No symptoms Musculoskeletal: Reports: No symptoms Skin: Reports: No symptoms Neurological: Reports: No symptoms Endocrine: Reports: No symptoms Hematologic/Lymphatic: Reports: No symptoms All Other Systems: Reviewed and Negative Past Medical History - Past Medical History Previously Healthy: Yes Endocrine: Reports: None Cardiovascular: Reports: None Respiratory: Reports: None Hematological: Reports: None Gastrointestinal: Reports: None Genitourinary: Reports: None Neuro/Psych: Reports: None Musculoskeletal: Reports: None Cancer: Reports: None Last Menstrual Period: LAST WEEK - Surgical History General Surgical History: Reports: None - Family History Family History: Reports: None - Social History Smoking Status: Never smoker Hx Substance Use: No Alcohol Screening: Occasionally - Immunizations Tetanus Shot up to Date: Yes Physical Exam - Physical Exam Appearance: Ill-appearing, Obese Ill-appearing: Mild Eyes: ALEE, EOMI, Conjunctiva clear ENT: Ears normal, Nose normal, Oropharynx normal Respiratory: Airway patent, Breath sounds clear, Breath sounds equal, Respirations nonlabored Cardiovascular: RRR, Pulses normal, No rub, No murmur GI/: Soft, Nontender, No masses, Bowel sounds normal, No Organomegaly Musculoskeletal: Normal strength, ROM intact, No edema, No calf tenderness Skin: Warm, Dry, Normal color Neurological: Sensation intact, Motor intact, Reflexes intact, Cranial nerves intact, Alert, Oriented Psychiatric: Anxious Critical Care Note - Critical Care Note Total Time (mins): 0 Course - Course Hematology/Chemistry: 02/12/18 23:55 02/12/18 23:55 Vital Signs: Temp Pulse Resp BP Pulse Ox 02/12/18 23:11 100 F H 88 18 109/74 99 Departure - Departure Time of Disposition: 00:41 Disposition: HOME SELF-CARE Discharge Problem: Pharyngitis Qualifiers: Pharyngitis/tonsillitis etiology: other specified organisms Qualified Code(s): J02.8 - Acute pharyngitis due to other specified organisms Instructions: Pharyngitis (ED) Condition: Stable Pt referred to PMD for follow-up: Yes IPMP verified?: No Additional Instructions: Push fluids Alternate Tylenol with Motrin as needed for pain Follow up with PCP in 3 days Allergies/Adverse Reactions: Allergies No Known Allergies Allergy (Verified 02/12/18 23:17) Home Medications: Ambulatory Orders Etonogestrel [Nexplanon] 68 mg SQ d 03/17/17 Ibuprofen 600 mg PO QID PRN 01/24/18 Disposition Discussed With: Patient, Family
[2018-02-12] MEDS ORDERED: MOTRIN PO STA (23:34)
== END 2018-02-13 00:52 | disposition home or self-care (01) ==
LOC: ED 23:08
DX: J02.9 Acute pharyngitis, unspecified (principal)
CPT/HCPCS: 36415; 80053; 85025; 86308; 87651; 99283

== ENCOUNTER 2018-05-15 22:05 | Emergency (ER) ==
[2018-05-15 22:13] VITALS: BP 107/69; TEMP 98.7; BMI 35.3
--- NOTE | 2018-05-15 22:27 | ED.PDOC ---
General ED Provider: Dr. ARELI ESTRADA MD Chief Complaint: Back Pain Stated Complaint: back pain, feels like a stone Time Seen by Physician: 22:30 (feels like a stone) Mode of Arrival: Walk-In Information Source: Patient Nursing and Triage Documentation Reviewed and Agree: Yes Does patient meet sepsis criteria?: No If yes, has appropriate treatment been initiated?: Yes System Inflammatory Response Syndrome: Not Applicable Sepsis Protocol: For patient's 13 years and over: Temp is 96.8 and below OR 101 and greater Pulse >90 BPM Resp >20/minute Acutely Altered Mental Status Are patient's symptoms suggestive of a new infection, such as: -Pneumonia -Skin, Soft Tissue -Endocarditis -UTI -Bone, Joint Infection -Implantable Device -Acute Abdominal Infection -Wound Infection -Meningitis -Blood Stream Catheter Infection -Unknown Complaint Exam - Complaint/Exam Patient Complains of: Reports: Pain Symptoms Are: Still present Timing: Constant Initial Severity: Mild Current Severity: Mild Location of Pain: Reports: Flank Aggravating: Reports: None Alleviating: Reports: None Ectopic Risk Factors: Reports: None Ovarian Torsion Risk Factors: Reports: None Surgical Obstruction Risk Factors: Reports: None RH Status: Unknown Related Surgical History: Reports: None Abdominal Findings: Present: None Rectal Exam: Present: Normal Findings Differential Diagnoses: UTI Review of Systems - Review Of Systems Constitutional: Reports: No symptoms Eyes: Reports: No symptoms Ears, Nose, Mouth, Throat: Reports: No symptoms Respiratory: Reports: No symptoms Cardiac: Reports: No symptoms GI: Reports: No symptoms : Reports: Flank pain (radiating to umbilicus.) Musculoskeletal: Reports: No symptoms Skin: Reports: No symptoms Neurological: Reports: No symptoms Endocrine: Reports: No symptoms Hematologic/Lymphatic: Reports: No symptoms All Other Systems: Reviewed and Negative Past Medical History - Past Medical History Previously Healthy: Yes Endocrine: Reports: None Cardiovascular: Reports: None Respiratory: Reports: None Hematological: Reports: None Gastrointestinal: Reports: None Genitourinary: Reports: None Neuro/Psych: Reports: None Musculoskeletal: Reports: None Cancer: Reports: None Last Menstrual Period: PRESENTLY - Surgical History General Surgical History: Reports: None - Family History Family History: Reports: None - Social History Smoking Status: Never smoker Hx Substance Use: No Alcohol Screening: Occasionally - Immunizations Tetanus Shot up to Date: (UNKNOWN) Physical Exam - Physical Exam Appearance: Obese Ill-appearing: None Pain Distress: Mild Eyes: ALEE, EOMI, Conjunctiva clear ENT: Ears normal, Nose normal, Oropharynx normal Respiratory: Airway patent, Breath sounds clear, Breath sounds equal, Respirations nonlabored Cardiovascular: RRR, Pulses normal, No rub, No murmur GI/: Soft, Nontender, No masses Musculoskeletal: Normal strength Skin: Warm, Dry, Normal color Neurological: Sensation intact, Motor intact, Reflexes intact, Cranial nerves intact, Alert, Oriented Psychiatric: Affect appropriate, Mood appropriate Critical Care Note - Critical Care Note Total Time (mins): 0 Course - Course Orders, Labs, Meds: Lab Review 05/15/18 22:55 Urine Color Yellow Urine Clarity Clear Urine pH 7.0 Ur Specific [place] 1.025 Urine Protein 1+ Urine Glucose (UA) Negative Urine Ketones Trace Urine Blood Negative Urine Nitrite Negative Urine Bilirubin Negative Urine Urobilinogen 1.0 Ur Leukocyte Esterase Negative Ur Squamous Epith Cells 0-2 Ur Transition Epith Cell 0-2 Urine Bacteria Trace Urine Mucus 1+ Orders Category Date Time Status UA [URINALYSIS C & S IF INDICATED] Stat LAB 05/15/18 22:55 Completed Ketorolac Tromethamine [Toradol] MEDS 05/15/18 22:59 Discontinued 60 mg .ROUTE .STK-MED ONE Ketorolac Tromethamine [Toradol] MEDS 05/15/18 22:56 Discontinued 60 mg IM ONCE STA CT ABDOMEN/PELVIS WO CONTRAST Stat RADS 05/15/18 22:26 Completed Medications Discontinued Medications Generic Name Dose Route Start Last Admin Trade Name Freq PRN Reason Stop Dose Admin Ketorolac Tromethamine 60 mg 05/15/18 22:56 05/15/18 23:05 Toradol IM 05/15/18 22:57 60 mg ONCE STA Administration Vital Signs: Temp Pulse Resp BP Pulse Ox 05/15/18 22:05 98.7 F 73 18 107/69 99 Departure - Departure Time of Disposition: 23:22 Disposition: HOME SELF-CARE Discharge Problem: Lower back pain Condition: Good Pt referred to PMD for follow-up: Yes IPMP verified?: No Prescriptions: Ketorolac Tromethamine 10 mg PO 1-2XD 5 Days #10 tablet NS Allergies/Adverse Reactions: Allergies No Known Allergies Allergy (Verified 05/15/18 22:13) Home Medications: Ambulatory Orders Etonogestrel [Nexplanon] 68 mg SQ d 03/17/17 Ibuprofen 600 mg PO QID PRN 01/24/18 Ketorolac Tromethamine 10 mg PO 1-2XD 5 Days #10 tablet NS 05/15/18 Disposition Discussed With: Patient, Family
[2018-05-15] MEDS ORDERED: TORADOL IM STA (22:56)
[2018-05-15] MEDS ORDERED: TORADOL ONE (22:59)
--- NOTE | 2018-05-15 23:16 | CT ---
EXAM: CT scan abdomen pelvis without contrast HISTORY: Back pain COMPARISON: CT scan abdomen pelvis 01/24/2018 FINDINGS: Contiguous axial images obtained through the abdomen pelvis without contrast utilizing 3-m m collimation. Sagittal and coronal reconstructions were imaged and reviewed.. The visualized lung bases are clear. Redemonstrated is questionable gallstone in the neck region.. The liver, pancreas, spleen and adrenal glands have normal unenhanced CT appearance. The abdominal aorta is normal in co urse and caliber.. The kidneys are morphologically normal.. There is a normal appendix. Submucosa l l fat deposition transverse colon suggest chronic colitis.. There is a right adnexal cyst measurin g 4.8 x 5.9 cm. There is no free fluid. The bladder is decompressed there is a fat-containing umbil ical hernia.. Subcentimeter bilateral inguinal lymph nodes are noted. IMPRESSION: Questionable noncalcified calculus within the neck of the gallbladder.. Normal appendix. Right adnexal cyst without free fluid. No evidence of nephrolithiasis or ureterolithiasis
== END 2018-05-15 23:26 | disposition home or self-care (01) ==
LOC: ED 22:05
DX: M54.5 Low back pain (principal)
CPT/HCPCS: 81001; 96372; 99283

== ENCOUNTER 2018-07-15 12:28 | Emergency (ER) ==
[2018-07-15 12:32] VITALS: BP 125/77; TEMP 98.6; BMI 36.3
[2018-07-15] MEDS ORDERED: LEVOPHED 4 MG in SODIUM CHLORIDE 246 ML IV SCH (13:00)
[2018-07-15] MEDS ORDERED: TORADOL IM STA (13:08)
[2018-07-15 13:28] LABS: URINE PREGNANCY TEST NEGATIVE (NEGATIVE)
--- NOTE | 2018-07-15 14:07 | CT ---
EXAM: CT of the abdomen pelvis without contrast History: Right flank pain. Technique: Multiplanar CT images through the abdomen pelvis were obtained without the administration of IV contrast Comparison: CT abdomen pelvis 05/15/2018 Findings: Lung bases are clear. No acute osseous abnormalities. Gallbladder is distended and the gallbladder wall appears thickened. No focal liver or splenic lesio ns. No renal stones and no hydronephrosis. The appendix is not dilated or inflamed. No peripancrea tic inflammation. Adrenal glands are unremarkable. No bowel obstruction. No free air and no ascite s. No bladder wall thickening. 4 cm left adnexal cystic mass. No perirectal inflammation. Impression: 1. Gallbladder distension and probable gallbladder wall thickening. Recommend further evaluation wi abdominal ultrasound to evaluate for cholecystitis. 2. Left adnexal cyst. Follow-up with pelvic ultrasound
--- NOTE | 2018-07-15 15:16 | US ---
EXAM: Right upper quadrant abdominal ultrasound. History: Right sided abdominal pain. Comparison: CT abdomen pelvis 07/15/2018 Technique: Multiple sonographic images through the abdomen were obtained. Color duplex Doppler was used to interrogate vascular flow. Findings: The liver is not enlarged. No focal liver lesions. There is antegrade flow within the main portal v ein. No abdominal ascites. The pancreas is unremarkable. Limited visualization of the right kidney demonstrates no evidence for hydronephrosis. Cholelithiasis and gallbladder wall thickening. Commo n bile duct measures 0.3 cm in caliber. Impression: Cholelithiasis and gallbladder wall thickening suspicious for acute cholecystitis.
--- NOTE | 2018-07-15 15:27 | ED.PDOC ---
General ED Provider: Dr. TED RAMIREZ Chief Complaint: Kidney Stone Stated Complaint: back pain/ right flank pain history of stone Time Seen by Physician: 12:30 Mode of Arrival: Walk-In Information Source: Patient Exam Limitations: No limitations Nursing and Triage Documentation Reviewed and Agree: Yes Does patient meet sepsis criteria?: No If yes, has appropriate treatment been initiated?: No System Inflammatory Response Syndrome: Not Applicable Sepsis Protocol: For patient's 13 years and over: Temp is 96.8 and below OR 101 and greater Pulse >90 BPM Resp >20/minute Acutely Altered Mental Status Are patient's symptoms suggestive of a new infection, such as: -Pneumonia -Skin, Soft Tissue -Endocarditis -UTI -Bone, Joint Infection -Implantable Device -Acute Abdominal Infection -Wound Infection -Meningitis -Blood Stream Catheter Infection -Unknown Musculoskeletal Complaint Exam - Back Pain Complaint/Exam Mechanism of Injury: Reports: No known trauma Onset/Duration: 1 day Symptoms Are: Still present Timing: Intermittent Episodes Lasting: Hours Initial Severity: Moderate Current Severity: Mild Location: Reports: Discrete (right flank) Character: Reports: Aching Aggravating: Reports: None Alleviating: Reports: None Associated Signs and Symptoms: Reports: Flank pain (right). Denies: Swelling, Redness, Bruising, Fever, Weakness, Numbness, Tingling, Abdominal pain, Bladder incontinence, Bowel incontinence, Weight loss, Pain with weight bearing Related History: Reports: Similar episode (renal stone) TAD Risk Factors: Reports: None AAA Risk Factors: Reports: None Cauda Equina Risk Factors: Reports: None Epidural Abcess Risk Factors: Reports: None Related Surgical History: Reports: None Focal Tenderness: No Paraspinal Muscle Tenderness: No Paraspinal Muscle Spasm: No Scoliosis: No Lordosis: No Kyphosis: No SLR Test: Right Negative, Left Negative Hip Motion Testing Pain: Right Negative, Left Negative Focal Weakness: Present: None Focal Sensory Loss: Present: None Gait: Present: Normal Differential Diagnoses: Renal Colic, Strain, Sprain Review of Systems - Review Of Systems Constitutional: Reports: No symptoms Eyes: Reports: No symptoms Ears, Nose, Mouth, Throat: Reports: No symptoms Respiratory: Reports: No symptoms Cardiac: Reports: No symptoms GI: Reports: No symptoms : Reports: No symptoms Musculoskeletal: Reports: Back pain Skin: Reports: No symptoms Neurological: Reports: No symptoms Endocrine: Reports: No symptoms Hematologic/Lymphatic: Reports: No symptoms All Other Systems: Reviewed and Negative Past Medical History - Past Medical History Previously Healthy: Yes Endocrine: Reports: None Cardiovascular: Reports: None Respiratory: Reports: None Hematological: Reports: None Gastrointestinal: Reports: None Genitourinary: Reports: None Neuro/Psych: Reports: None Musculoskeletal: Reports: None Cancer: Reports: None Last Menstrual Period: last week - Surgical History General Surgical History: Reports: None - Family History Family History: Reports: None - Social History Smoking Status: Never smoker Hx Substance Use: No Alcohol Screening: Occasionally Physical Exam - Physical Exam Appearance: Well-appearing, No pain distress, Well-nourished Eyes: ALEE, EOMI, Conjunctiva clear ENT: Ears normal, Nose normal, Oropharynx normal Respiratory: Airway patent, Breath sounds clear, Breath sounds equal, Respirations nonlabored Cardiovascular: RRR, Pulses normal, No rub, No murmur GI/: Soft, Nontender, No masses, Bowel sounds normal, No Organomegaly Musculoskeletal: Normal strength, ROM intact, No edema, No calf tenderness Skin: Warm, Dry, Normal color Neurological: Sensation intact, Motor intact, Reflexes intact, Cranial nerves intact, Alert, Oriented Psychiatric: Affect appropriate, Mood appropriate Critical Care Note - Critical Care Note Total Time (mins): 0 Course - Course Hematology/Chemistry: 07/15/18 13:10 07/15/18 13:10 Orders, Labs, Meds: Lab Review 07/15/18 07/15/18 07/15/18 12:40 13:00 13:10 WBC 8.76 RBC 3.87 L Hgb 10.5 L Hct 32.1 L MCV 82.9 MCH 27.1 MCHC 32.7 RDW Coeff of [place] 14.8 Plt Count 301 Immature Gran % (Auto) 0.3 Neut % (Auto) 57.1 Lymph % (Auto) 32.4 [place] % (Auto) 8.3 Eos % (Auto) 1.7 Baso % (Auto) 0.2 Immature Gran # (Auto) 0.0 Neut # (Auto) 5.0 Lymph # (Auto) 2.8 [place] # (Auto) 0.7 Eos # (Auto) 0.2 Baso # (Auto) 0.0 Sodium Potassium Chloride Carbon Dioxide Anion Gap BUN Creatinine Estimated GFR (MDRD) BUN/Creatinine Ratio Glucose Calcium Total Bilirubin AST ALT Alkaline Phosphatase Total Protein Albumin Globulin Albumin/Globulin Ratio Urine Color Yellow Urine Clarity Clear Urine pH 7.0 Ur Specific [place] 1.020 Urine Protein Negative Urine Glucose (UA) Negative Urine Ketones Negative Urine Blood Negative Urine Nitrite Negative Urine Bilirubin Negative Urine Urobilinogen 0.2 Ur Leukocyte Esterase Negative Urine Test Negative 07/15/18 13:10 WBC RBC Hgb Hct MCV MCH MCHC RDW Coeff of [place] Plt Count Immature Gran % (Auto) Neut % (Auto) Lymph % (Auto) [place] % (Auto) Eos % (Auto) Baso % (Auto) Immature Gran # (Auto) Neut # (Auto) Lymph # (Auto) [place] # (Auto) Eos # (Auto) Baso # (Auto) Sodium 140.4 Potassium 3.35 L Chloride 102.9 Carbon Dioxide 30.2 H Anion Gap 10.65 BUN 10.1 Creatinine 0.57 L Estimated GFR (MDRD) 125.00 BUN/Creatinine Ratio 17.71 Glucose 77.6 Calcium 9.51 Total Bilirubin 0.30 AST 31.3 ALT 24.8 Alkaline Phosphatase 53.5 Total Protein 7.23 Albumin 3.85 Globulin 3.38 Albumin/Globulin Ratio 1.13 Urine Color Urine Clarity Urine pH Ur Specific [place] Urine Protein Urine Glucose (UA) Urine Ketones Urine Blood Urine Nitrite Urine Bilirubin Urine Urobilinogen Ur Leukocyte Esterase Urine Test Orders Category Date Time Status NPO REMINDER: IMAGING ONCE CARE 07/15/18 14:37 Ordered CBC W/ AUTO DIFF Stat LAB 07/15/18 12:58 Ordered COMPREHENSIVE METABOLIC PANEL Stat LAB 07/15/18 12:58 Ordered URINALYSIS C & S IF INDICATED Stat LAB 07/15/18 12:40 Completed URINE Stat LAB 07/15/18 13:00 Ordered Ketorolac Tromethamine [Toradol] MEDS 07/15/18 13:08 Stat 60 mg IM ONCE STA CT ABD/PEL WO RENAL STONE PROT Stat RADS 07/15/18 12:59 Ordered ULTRASOUND ABDOMEN, RT. UPPER QUAD [U/S ABDOMEN RT RADS 07/15/18 14:36 Ordered UPPER QUAD] Stat Medications Discontinued Medications Generic Name Dose Route Start Last Admin Trade Name Freq PRN Reason Stop Dose Admin Ketorolac Tromethamine 60 mg 07/15/18 13:08 07/15/18 13:14 Toradol IM 07/15/18 13:09 60 mg ONCE STA Administration Vital Signs: Temp Pulse Resp BP Pulse Ox 07/15/18 12:28 98.6 F 64 20 125/77 99 Departure - Departure Time of Disposition: 15:29 Disposition: HOME SELF-CARE Discharge Problem: Abdominal pain Qualifiers: Abdominal location: unspecified location Qualified Code(s): R10.9 - Unspecified abdominal pain Instructions: Abdominal Pain (ED) Condition: Good Pt referred to PMD for follow-up: Yes IPMP verified?: No Additional Instructions: Please call your Family Physician as soon as possible to schedule a follow-up appointment. Allergies/Adverse Reactions: Allergies No Known Allergies Allergy (Verified 07/15/18 12:32) Home Medications: Ambulatory Orders Etonogestrel [Nexplanon] 68 mg SQ d 03/17/17 Ibuprofen 600 mg PO QID PRN 01/24/18
== END 2018-07-15 16:15 | disposition home or self-care (01) ==
LOC: ED 12:28
DX: R10.9 Unspecified abdominal pain (principal); D64.9 Anemia, unspecified; M54.9 Dorsalgia, unspecified; Z87.442 Personal history of urinary calculi
CPT/HCPCS: 36415; 74176; 80053; 81001; 81025; 85025; 96372; 99283

== ENCOUNTER 2018-07-24 19:19 | Emergency (ER) ==
[2018-07-24 19:25] VITALS: BP 117/84; TEMP 98.4; BMI 35.1
[2018-07-24 20:13] LABS: URINE PREGNANCY TEST NEGATIVE (NEGATIVE)
--- NOTE | 2018-07-24 20:45 | CT ---
Exam: CT scan of the abdomen pelvis without contrast. Date: 07/24/2018. Comparison: 05/15/2018. HISTORY: Flank pain with history of kidney stones. TECHNIQUE: Helical scan of the abdomen pelvis was performed without contrast. FINDINGS: The lung bases are clear. The lumbar spine and bony pelvis are within normal limits. The spleen and liver have a uniform attenuation. The gallbladder, stomach, pancreas and adrenal glan ds are normal. The kidneys have a normal morphology. No calculi or hydronephrosis is seen. No retr operitoneal adenopathy is present. Aorta does not exceed 3 cm. The small bowel and appendix are nor mal. The colon, pelvic sidewall and bladder are normal. There is no free pelvic fluid. There is a 3.2 x 2.9 cm left ovarian cyst. The uterus, rectum and inguinal regions appear normal. Impression: No acute findings in the abdomen or pelvis. Probable 3.2 x 2.9 cm left ovarian cyst. M ore definitive evaluation is needed then ultrasound could be performed.
--- NOTE | 2018-07-24 20:53 | CT ---
EXAM: CT lumbar spine without contrast HISTORY: Low back pain COMPARISON: None TECHNIQUE: CT lumbar spine performed without intravenous contrast. FINDINGS: Vertebral bodies normal height. No fracture. No subluxation. Multilevel marginal osteop hyte formation. Endplate degenerative change T11-T12. Left ovarian cyst is incompletely imaged and described on corresponding CT abdomen pelvis T11-T12: Posterior disc osteophyte complex is centered to the right causing mild to moderate right p aracentral canal narrowing. T12-L1: No central canal or neural foraminal narrowing. L1-L2: No central canal or neural foraminal narrowing. L2-L3: No central canal or neural foraminal narrowing. L3-L4: No central canal or neural foraminal narrowing. L4-L5: No central canal or neural foraminal narrowing. L5-S1: No central canal or neural foraminal narrowing IMPRESSION: 1. No fracture or subluxation. 2. Chronic discogenic degenerative disease. Please see segmental analysis.
[2018-07-24] MEDS ORDERED: LEVAQUIN PO STA (21:02)
[2018-07-24] MEDS ORDERED: NORCO 7.5-325 PO STA (21:03)
--- NOTE | 2018-07-24 21:06 | ED.PDOC ---
General ED Provider: Dr. ARELI RANGEL-ER Chief Complaint: Back Pain Stated Complaint: im hurting in my back and its radiating around front Time Seen by Physician: 19:25 Mode of Arrival: Wheelchair Information Source: Patient Exam Limitations: No limitations Nursing and Triage Documentation Reviewed and Agree: Yes Does patient meet sepsis criteria?: No System Inflammatory Response Syndrome: Not Applicable Sepsis Protocol: For patient's 13 years and over: Temp is 96.8 and below OR 101 and greater Pulse >90 BPM Resp >20/minute Acutely Altered Mental Status Are patient's symptoms suggestive of a new infection, such as: -Pneumonia -Skin, Soft Tissue -Endocarditis -UTI -Bone, Joint Infection -Implantable Device -Acute Abdominal Infection -Wound Infection -Meningitis -Blood Stream Catheter Infection -Unknown Musculoskeletal Complaint Exam - Back Pain Complaint/Exam Mechanism of Injury: Reports: No known trauma Onset/Duration: 2 days Symptoms Are: Still present Timing: Constant Initial Severity: Mild Current Severity: Mild Location: Reports: Diffuse Character: Reports: Dull, Aching Aggravating: Reports: Movements Alleviating: Reports: None Associated Signs and Symptoms: Reports: Abdominal pain, Flank pain. Denies: Swelling, Redness, Bruising, Fever, Weakness, Tingling AAA Risk Factors: Reports: None Cauda Equina Risk Factors: Reports: None Epidural Abcess Risk Factors: Reports: None Related Surgical History: Reports: None Focal Tenderness: Yes Paraspinal Muscle Tenderness: Yes Paraspinal Muscle Spasm: No Scoliosis: No Lordosis: No Kyphosis: No SLR Test: Right Negative, Left Negative Hip Motion Testing Pain: Right Negative, Left Negative Focal Weakness: Present: None Focal Sensory Loss: Present: None Gait: Present: Normal Differential Diagnoses: Renal Colic, Other Review of Systems - Review Of Systems Constitutional: Reports: No symptoms Eyes: Reports: No symptoms Ears, Nose, Mouth, Throat: Reports: No symptoms Respiratory: Reports: No symptoms Cardiac: Reports: No symptoms GI: Reports: Abdominal pain : Reports: No symptoms Musculoskeletal: Reports: Back pain Skin: Reports: No symptoms Neurological: Reports: No symptoms Endocrine: Reports: No symptoms Hematologic/Lymphatic: Reports: No symptoms All Other Systems: Reviewed and Negative Past Medical History - Past Medical History Previously Healthy: Yes Endocrine: Reports: None Cardiovascular: Reports: None Respiratory: Reports: None Hematological: Reports: None Gastrointestinal: Reports: None Genitourinary: Reports: None Neuro/Psych: Reports: None Musculoskeletal: Reports: None Cancer: Reports: None Last Menstrual Period: now - Surgical History General Surgical History: Reports: None - Family History Family History: Reports: None - Social History Smoking Status: Never smoker Hx Substance Use: No Alcohol Screening: None - Immunizations Tetanus Shot up to Date: Yes Physical Exam - Physical Exam Appearance: Well-appearing, No pain distress, Well-nourished Pain Distress: Moderate Eyes: ALEE, EOMI, Conjunctiva clear ENT: Ears normal, Nose normal, Oropharynx normal Neck: Supple Respiratory: Airway patent, Breath sounds clear, Breath sounds equal, Respirations nonlabored Cardiovascular: RRR, Pulses normal, No rub, No murmur GI/: Soft Musculoskeletal: Normal strength Skin: Warm Neurological: Sensation intact, Motor intact, Reflexes intact, Cranial nerves intact, Alert, Oriented Psychiatric: Affect appropriate Interpretation - Radiology Interpretation Radiology Interpretation By: Radiologist Radiology Results: Positive Exam Interpreted: CT Scan Critical Care Note - Critical Care Note Total Time (mins): 0 Course - Course Hematology/Chemistry: 07/24/18 19:48 07/24/18 19:48 Orders, Labs, Meds: Lab Review 07/24/18 07/24/18 07/24/18 19:42 19:42 19:48 WBC 10.36 H RBC 4.34 Hgb 11.9 L Hct 36.6 L MCV 84.3 MCH 27.4 MCHC 32.5 RDW Coeff of [place] 14.7 Plt Count 398 Immature Gran % (Auto) 0.3 Neut % (Auto) 71.2 Lymph % (Auto) 20.9 Tucker % (Auto) 6.6 Eos % (Auto) 0.6 Baso % (Auto) 0.4 Immature Gran # (Auto) 0.0 Neut # (Auto) 7.4 H Lymph # (Auto) 2.2 Tucker # (Auto) 0.7 Eos # (Auto) 0.1 Baso # (Auto) 0.0 Sodium Potassium Chloride Carbon Dioxide Anion Gap BUN Creatinine Estimated GFR (MDRD) BUN/Creatinine Ratio Glucose Calcium Total Bilirubin AST ALT Alkaline Phosphatase Total Protein Albumin Globulin Albumin/Globulin Ratio Amylase Lipase Urine Color Yellow Urine Clarity Slightly Urine pH 6.0 Ur Specific [place] 1.025 Urine Protein Negative Urine Glucose (UA) Negative Urine Ketones Negative Urine Blood Trace-lysed Urine Nitrite Positive Urine Bilirubin Negative Urine Urobilinogen 1.0 Ur Leukocyte Esterase 1+ Urine Microscopic RBC 0-2 Urine Microscopic WBC 20-30 Ur Squamous Epith Cells 5-10 Urine Bacteria 2+ Urine Test Negative 07/24/18 07/24/18 19:48 19:48 WBC RBC Hgb Hct MCV MCH MCHC RDW Coeff of [place] Plt Count Immature Gran % (Auto) Neut % (Auto) Lymph % (Auto) Tucker % (Auto) Eos % (Auto) Baso % (Auto) Immature Gran # (Auto) Neut # (Auto) Lymph # (Auto) Tucker # (Auto) Eos # (Auto) Baso # (Auto) Sodium 140.7 Potassium 3.92 Chloride 102.6 Carbon Dioxide 28.6 Anion Gap 13.42 BUN 11.3 Creatinine 0.61 Estimated GFR (MDRD) 116.00 BUN/Creatinine Ratio 18.52 Glucose 104.0 Calcium 9.45 Total Bilirubin 0.48 AST 21.2 ALT 19.6 Alkaline Phosphatase 60.9 Total Protein 8.16 Albumin 4.34 Globulin 3.82 Albumin/Globulin Ratio 1.13 Amylase 51.6 Lipase 61.0 Urine Color Urine Clarity Urine pH Ur Specific [place] Urine Protein Urine Glucose (UA) Urine Ketones Urine Blood Urine Nitrite Urine Bilirubin Urine Urobilinogen Ur Leukocyte Esterase Urine Microscopic RBC Urine Microscopic WBC Ur Squamous Epith Cells Urine Bacteria Urine Test Orders Category Date Time Status AMYLASE Stat LAB 07/24/18 19:48 Completed CBC W/ AUTO DIFF Stat LAB 07/24/18 19:48 Completed COMPREHENSIVE METABOLIC PANEL Stat LAB 07/24/18 19:48 Completed LIPASE Stat LAB 07/24/18 19:48 Completed URINALYSIS C & S IF INDICATED Stat LAB 07/24/18 19:42 Completed URINE CULTURE Stat LAB 07/24/18 19:42 Received URINE Stat LAB 07/24/18 19:42 Completed Hydrocodone Bit/Acetaminophen [Elmer 7.5-325] MEDS 07/24/18 21:03 Stat 1 tab PO ONCE STA Levofloxacin [Levaquin] MEDS 07/24/18 21:02 Stat 500 mg PO ONCE STA CT ABDOMEN/PELVIS WO CONTRAST Stat RADS 07/24/18 19:[address] LUMBAR SPINE W/O CONTRAST Stat RADS 07/24/18 19:41 Completed Medications Generic Name Dose Route Start Last Admin Trade Name Freq PRN Reason Stop Dose Admin Hydrocodone Bitart/Acetaminophen 1 tab 07/24/18 21:03 Elmer 7.5-325 PO 07/24/18 21:04 ONCE STA Levofloxacin 500 mg 07/24/18 21:02 Levaquin PO 07/24/18 21:03 ONCE STA Vital Signs: Temp Pulse Resp BP Pulse Ox 07/24/18 19:20 98.4 F 84 20 117/84 99 Departure - Departure Time of Disposition: 21:06 Disposition: HOME SELF-CARE Discharge Problem: UTI (urinary tract infection) Qualifiers: Urinary tract infection type: acute cystitis Hematuria presence: without hematuria Qualified Code(s): N30.00 - Acute cystitis without hematuria Ovarian cyst Qualifiers: Laterality: left Qualified Code(s): N83.202 - Unspecified ovarian cyst, left side Low back pain Qualifiers: Chronicity: acute Back pain laterality: midline Sciatica presence: without sciatica Qualified Code(s): M54.5 - Low back pain Instructions: Urinary Tract Infection in Women (ED) Condition: Good Pt referred to PMD for follow-up: Yes IPMP verified?: No Additional Instructions: levaquin 500mg q daily #7---norco 7.5mg q 6hrs prn pain #12---f/u urine culture and consider ultrasound of ovarian mass Allergies/Adverse Reactions: Allergies No Known Allergies Allergy (Verified 07/24/18 19:25) Home Medications: Ambulatory Orders Etonogestrel [Nexplanon] 68 mg SQ d 03/17/17 Ibuprofen 600 mg PO QID PRN 01/24/18 Hydrocodone/Acetaminophen [Elmer 10-325 Tablet] 1 each PO Q8HR #10 tablet Disposition Discussed With: Patient, Family
== END 2018-07-24 21:30 | disposition home or self-care (01) ==
LOC: ED 19:19
DX: N30.00 Acute cystitis without hematuria (principal); N83.202 Unspecified ovarian cyst, left side; M54.5 Low back pain
CPT/HCPCS: 36415; 80053; 81001; 81025; 82150; 83690; 85025; 87086; 87186; 99283